=== PATIENT | female | born 1990 | race Two or more races ===

== ENCOUNTER 2018-05-28 17:56 | Observation (INO) | payer BC ==
[~2018-05-28] VITALS: Ht 160 cm; Wt 78.6 kg
[2018-05-28 18:30] LABS: MICROSCOPIC INDICATED
[2018-05-28] MEDS ORDERED: PREN1TAB60 PO (18:38)
[2018-05-28] MEDS ORDERED: LACTATED RINGERS 1,000 ML IV SCH (19:43)
[2018-05-28] MEDS ORDERED: LACTATED RINGERS 500 ML IVBOLUS ONE (20:00)
[2018-05-28] MEDS ORDERED: LACTATED RINGERS 1,000 ML IVBOLUS PRN (20:00)
[2018-05-28] MEDS ORDERED: NITROFURANTOIN (MACROBID) 100 MG CAPSULE ONE (20:40)
[2018-05-28] MEDS: NITROFURANTOIN (MACROBID) 100 MG CAPSULE PO SCH (20:42)
[2018-05-29] MEDS ORDERED: NITROFURANTOIN (MACROBID) 100 MG CAPSULE ONE (08:27)
[2018-05-29] MEDS: NITROFURANTOIN (MACROBID) 100 MG CAPSULE PO SCH (08:36)
[2018-05-29] MEDS ORDERED: LACTATED RINGERS 1,000 ML IV SCH (19:43)
== END 2018-05-29 09:15 | disposition home or self-care (01) ==
LOC: LDOP 17:56 → LDIP 20:00
PROVIDERS: ADMIT Obstetrics & Gynecology Maternal & Fetal Medicine; ATTEND Obstetrics & Gynecology Maternal & Fetal Medicine
DX: O62.9 Abnormality of forces of labor, unspecified (principal); O30.003 Twin pregnancy, unspecified number of placenta and unspecified number of amniotic sacs, third trimester; O40.3XX0 Polyhydramnios, third trimester, not applicable or unspecified; Z3A.31 31 weeks gestation of pregnancy
CPT/HCPCS: 59025; 81001; 87086; G0378; J7120; 96360; 96361

== ENCOUNTER 2018-06-16 18:40 | Outpatient (CLI) | payer BC ==
[~2018-06-16] VITALS: Ht 160 cm; Wt 83.2 kg
[~2018-06-16 18:40] MED LIST: PREN1TAB60 PO
[2018-06-16] MEDS ORDERED: BETAMETHASONE 6 MG/ML, 5ML IM ONE (19:33)
[2018-06-16 19:55] LABS: MICROSCOPIC INDICATED
[2018-06-16] MEDS ORDERED: BETAMETHASONE 6 MG/ML, 5ML IM SCH (20:00)
[2018-06-16] MEDS ORDERED: NITROFURANTOIN (MACROBID) 100 MG CAPSULE ONE (20:32)
[2018-06-16] MEDS ORDERED: NITROFURANTOIN (MACROBID) 100 MG CAPSULE PO SCH (21:00)
[2018-06-16 21:20] LABS: BASOPHILS # (AUTO) 0.01 x10^3/uL (0-0.1); BASOPHILS % (AUTO) 0 % (0-1); EOSINOPHILS # (AUTO) 0.15 x10^3/uL (0-0.4); EOSINOPHILS % (AUTO) 2 % (1-7); LYMPHOCYTES # (AUTO) 1.52 x10^3/uL (1-3.4); LYMPHOCYTES % (AUTO) 20 % (22-44); MD NO; MEAN CORPUSCULAR HEMOGLOBIN 24.7 pg (27.0-34.8); MEAN CORPUSCULAR HGB CONC 32.4 g/dL (32.4-35.8); MEAN CORPUSCULAR VOLUME 76.2 fL (80-100); MEAN PLATELET VOLUME 9.3 fL (7.4-10.4); MONOCYTES % (AUTO) 4 % (2-9); NEUTROPHILS % (AUTO) 74 % (42-75); PLATELET COUNT 216 x10^3/uL (130-400); RED BLOOD COUNT 3.91 x10^6/uL (3.82-5.3); RED CELL DISTRIBUTION WIDTH 16.5 % (9.6-15.2)
[2018-06-16 21:28] LABS: ALANINE AMINOTRANSFERASE 13 U/L (12-78); ALBUMIN 2.3 g/dL (3.4-5.0); ANION GAP 8 mmol/L (5-15); CALCIUM 8.2 mg/dL (8.5-10.1); CHLORIDE 112 mmol/L (98-107); CREATININE 0.57 mg/dL (0.55-1.02)
[2018-06-16 21:30] LABS: BILIRUBIN, DIRECT < 0.1 mg/dL (0.1-0.2)
[2018-06-16 21:31] LABS: ALKALINE PHOSPHATASE 170 U/L (45-117); BILIRUBIN,TOTAL 0.2 mg/dL (0.2-1.0); TOTAL PROTEIN 6.3 g/dL (6.4-8.2)
[2018-06-16] MEDS ORDERED: NITR100C56 PO (21:59)
== END 2018-06-16 22:23 | disposition home or self-care (01) ==
LOC: LDOP 18:40
PROVIDERS: ATTEND Obstetrics & Gynecology Maternal & Fetal Medicine
DX: O26.892 Other specified pregnancy related conditions, second trimester (principal); Z3A.34 34 weeks gestation of pregnancy
CPT/HCPCS: 36415; 59025; 80053; 81001; 82248; 84550; 85025; 87086; 96372; 99211; J0702; G0463

== ENCOUNTER 2018-06-30 18:34 | Outpatient (CLI) | payer BC ==
[~2018-06-30] VITALS: Ht 160 cm; Wt 85.0 kg
[~2018-06-30 18:34] MED LIST changes: +NITR100C56 PO
[2018-06-30 19:08] LABS: MICROSCOPIC INDICATED
[2018-06-30 19:18] LABS: BASOPHILS # (AUTO) 0.03 x10^3/uL (0-0.1); BASOPHILS % (AUTO) 0 % (0-1); EOSINOPHILS # (AUTO) 0.14 x10^3/uL (0-0.4); EOSINOPHILS % (AUTO) 2 % (1-7); LYMPHOCYTES # (AUTO) 2.06 x10^3/uL (1-3.4); LYMPHOCYTES % (AUTO) 26 % (22-44); MD NO; MEAN CORPUSCULAR HEMOGLOBIN 24.3 pg (27.0-34.8); MEAN CORPUSCULAR HGB CONC 32.6 g/dL (32.4-35.8); MEAN CORPUSCULAR VOLUME 74.7 fL (80-100); MEAN PLATELET VOLUME 9.4 fL (7.4-10.4); MONOCYTES # (AUTO) 0.44 x10^3/uL (0.2-0.8); MONOCYTES % (AUTO) 6 % (2-9); NEUTROPHILS # (AUTO) 5.28 x10^3/uL (1.8-6.8); NEUTROPHILS % (AUTO) 66 % (42-75); PLATELET COUNT 207 x10^3/uL (130-400); RED BLOOD COUNT 4.17 x10^6/uL (3.82-5.3); RED CELL DISTRIBUTION WIDTH 17.4 % (9.6-15.2)
[2018-06-30 19:29] LABS: ALANINE AMINOTRANSFERASE 19 U/L (12-78); ALBUMIN 2.4 g/dL (3.4-5.0); ANION GAP 10 mmol/L (5-15); CALCIUM 8.3 mg/dL (8.5-10.1); CHLORIDE 109 mmol/L (98-107); CREATININE 0.72 mg/dL (0.55-1.02)
[2018-06-30 19:31] LABS: ALKALINE PHOSPHATASE 220 U/L (45-117); BILIRUBIN,TOTAL 0.3 mg/dL (0.2-1.0); TOTAL PROTEIN 6.6 g/dL (6.4-8.2)
== END 2018-06-30 19:54 | disposition home or self-care (01) ==
LOC: LDOP 18:34
PROVIDERS: ATTEND Obstetrics & Gynecology Maternal & Fetal Medicine
DX: O10.913 Unspecified pre-existing hypertension complicating pregnancy, third trimester (principal); Z3A.36 36 weeks gestation of pregnancy
CPT/HCPCS: 36415; 59025; 80053; 81001; 82570; 84156; 84550; 85025; 87086; 99211; G0463

== ENCOUNTER 2018-07-02 07:38 | Inpatient (IN) | payer BC ==
[~2018-07-02] VITALS: Ht 160 cm; Wt 84.0 kg
[2018-07-02] MEDS ORDERED: OXYTOCIN 30U/ 0.9% NaCL 500ML 500 ML IV PRN (09:18)
[2018-07-02] MEDS: D5%-LACTATED RINGERS 1,000 ML IV SCH ×2 (09:18→17:18)
[2018-07-02] MEDS ORDERED: OXYTOCIN 30U/ 0.9% NaCL 500ML 500 ML IV ONE (09:18)
[2018-07-02] MEDS ORDERED: ONDANSETRON 2MG/ML, 2ML IVPush PRN ×2 (09:30→15:00)
[2018-07-02] MEDS ORDERED: SODIUM CITRATE/CITRIC ACID 15 ML UDC PO PRN (09:30)
[2018-07-02] MEDS ORDERED: CALCIUM CARBONATE 500 MG TAB.CHEW PO PRN (09:30)
[2018-07-02] MEDS ORDERED: FENTANYL PF 100 MCG/2ML IVPush PRN (09:30)
[2018-07-02 09:57] LABS: MEAN CORPUSCULAR HEMOGLOBIN 23.4 pg (27.0-34.8); MEAN CORPUSCULAR HGB CONC 31.5 g/dL (32.4-35.8); MEAN CORPUSCULAR VOLUME 74.2 fL (80-100); MEAN PLATELET VOLUME 9.8 fL (7.4-10.4); PLATELET COUNT 204 x10^3/uL (130-400); RED BLOOD COUNT 4.35 x10^6/uL (3.82-5.3); RED CELL DISTRIBUTION WIDTH 17.8 % (9.6-15.2)
[2018-07-02 10:14] LABS: MD YES
[2018-07-02 10:16] LABS: ANISOCYTOSIS 1+; HYPOCHROMIA 1+; LYMPHS% (MANUAL) 35 % (22-44); MICROCYTOSIS 1+; MONOS#(MANUAL) 0.48 x10^3/uL (0.3-2.7); MONOS% (MANUAL) 8 % (2-9); SEG#(MANUAL) 3.42 x10^3/uL (1.8-6.8); SEGS% (MANUAL) 57 % (42-75)
[2018-07-02 10:17] LABS: <PLATELET ESTIMATE> ADEQUATE; <PLT MORPHOLOGY> NORMAL PLT MORPH; POLYCHROMASIA 1+
[2018-07-02] MEDS ORDERED: FENTANYL PF 500 MCG, BUPIVACAINE/PF 0.5%, 30ML 62.5 ML in SODIUM CHLORIDE 0.9% 177.5 ML EPIDCONT SCH ×2 (10:26→15:00)
[2018-07-02 10:29] VITALS: BP 138/76
[2018-07-02] MEDS ORDERED: NEWBORN KIT ONE ×2 (10:51→10:52)
[2018-07-02] MEDS ORDERED: LIDOCAINE 1%, 20ML ONE (10:52)
[2018-07-02] MEDS ORDERED: MISOPROSTOL 200 MCG TABLET ONE (10:52)
[2018-07-02] MEDS ORDERED: OXYTOCIN 30U/ 0.9% NaCL 500ML 500 ML ONE (10:52)
[2018-07-02] MEDS: PLEASE ENTER HEIGHT AND WEIGHT MC SCH ×2 (11:00→19:00)
[2018-07-02] MEDS: LACTATED RINGERS 1,000 ML IVBOLUS PRN ×2 (13:34→14:25)
[2018-07-02] MEDS ORDERED: BUPIVACAINE 0.25% ONE (14:18)
[2018-07-02] MEDS: LACTATED RINGERS 1,000 ML IV SCH ×4 (14:46→22:53)
[2018-07-02] MEDS ORDERED: FENTANYL/BUPIV./NS/PF 250 ML EPIDCONT SCH (14:53)
[2018-07-02] MEDS ORDERED: NALOXONE 0.4 MG/ML, 1ML IVPush PRN (15:00)
[2018-07-02] MEDS ORDERED: DIPHENHYDRAMINE 50 MG/ML, 1ML IVPush PRN (15:00)
[2018-07-02] MEDS ORDERED: LACTATED RINGERS 1,000 ML IVBOLUS PRN (15:00)
[2018-07-02] MEDS ORDERED: EPHEDRINE 50 MG/ML, 1ML IVPush PRN (15:00)
[2018-07-02 19:30] VITALS: BP 106/70
[2018-07-02] MEDS ORDERED: ONDANSETRON 2MG/ML, 2ML ONE (22:33)
[2018-07-02] MEDS ORDERED: SODIUM CITRATE/CITRIC ACID 15 ML UDC ONE (22:48)
[2018-07-02] MEDS ORDERED: METOCLOPRAMIDE 5 MG/ML, 2ML ONE (22:48)
[2018-07-02] MEDS ORDERED: LIDOCAINE/MPF 2%-EPI 1:200K, 20 ML ONE (23:07)
[2018-07-03] MEDS ORDERED: OXYTOCIN 30U/ 0.9% NaCL 500ML 500 ML ONE (00:33)
[2018-07-03] MEDS: OXYTOCIN 30U/ 0.9% NaCL 500ML 500 ML IV SCH ×2 (00:40→10:40)
[2018-07-03] MEDS ORDERED: IBUPROFEN 600 MG TABLET ONE (00:46)
[2018-07-03] MEDS: IBUPROFEN 600 MG TABLET PO PRN ×3 (00:49→16:14)
[2018-07-03] MEDS ORDERED: METHYLERGONOVINE 0.2 MG/ML IM PRN (01:00)
[2018-07-03] MEDS ORDERED: CARBOPROST TROMETHAMINE 250 MCG/ML, 1ML IM PRN (01:00)
[2018-07-03] MEDS ORDERED: ONDANSETRON 2MG/ML, 2ML IV PRN (01:00)
[2018-07-03] MEDS ORDERED: MISOPROSTOL 200 MCG TABLET SL PRN (01:00)
[2018-07-03] MEDS ORDERED: OXYcodone IR 5MG TABLET PO PRN (01:00)
[2018-07-03] MEDS ORDERED: OXYcodone/APAP 5/325MG TABLET PO PRN (01:00)
[2018-07-03] MEDS ORDERED: ACETAMINOPHEN 325 MG TABLET PO PRN (01:00)
[2018-07-03] MEDS: D5%-LACTATED RINGERS 1,000 ML IV SCH (01:18)
[2018-07-03 02:40] VITALS: BP 109/66
[2018-07-03 05:15] VITALS: BP 114/69
[2018-07-03] MEDS: LACTATED RINGERS 1,000 ML IV SCH ×2 (06:53→14:53)
[2018-07-03 07:50] VITALS: BP 120/77
[2018-07-03] MEDS: DOCUSATE 100 MG CAPSULE PO PRN (07:57)
[2018-07-03] MEDS: PRENATAL VIT/IRON/FA 1 EACH TABLET PO SCH (07:57)
[2018-07-03 08:12] LABS: MEAN CORPUSCULAR HEMOGLOBIN 23.4 pg (27.0-34.8); MEAN CORPUSCULAR HGB CONC 31.3 g/dL (32.4-35.8); MEAN CORPUSCULAR VOLUME 74.6 fL (80-100); MEAN PLATELET VOLUME 9.2 fL (7.4-10.4); PLATELET COUNT 158 x10^3/uL (130-400); RED BLOOD COUNT 4.25 x10^6/uL (3.82-5.3); RED CELL DISTRIBUTION WIDTH 18.1 % (9.6-15.2)
[2018-07-03 08:28] LABS: BASOPHILS # (AUTO) 0.03 x10^3/uL (0-0.1); BASOPHILS % (AUTO) 0 % (0-1); EOSINOPHILS # (AUTO) 0.02 x10^3/uL (0-0.4); EOSINOPHILS % (AUTO) 0 % (1-7); LYMPHOCYTES # (AUTO) 1.78 x10^3/uL (1-3.4); LYMPHOCYTES % (AUTO) 17 % (22-44); MD SCAN; MONOCYTES # (AUTO) 0.48 x10^3/uL (0.2-0.8); MONOCYTES % (AUTO) 5 % (2-9); NEUTROPHILS # (AUTO) 8.08 x10^3/uL (1.8-6.8); NEUTROPHILS % (AUTO) 78 % (42-75)
[2018-07-03 11:51] VITALS: BP 116/72
[2018-07-03 16:27] VITALS: BP 110/72
[2018-07-03 19:45] VITALS: BP 104/62
[2018-07-04] VITALS: BP 112/69
[2018-07-04] MEDS: IBUPROFEN 600 MG TABLET PO PRN ×2 (03:00→08:22)
[2018-07-04 07:30] VITALS: BP 106/68
[2018-07-04] MEDS: DOCUSATE 100 MG CAPSULE PO PRN (08:22)
[2018-07-04] MEDS: PRENATAL VIT/IRON/FA 1 EACH TABLET PO SCH (08:22)
[2018-07-04] MEDS ORDERED: DOCU-131 PO (13:29)
[2018-07-04] MEDS ORDERED: IBUP-1222 PO (13:30)
== END 2018-07-04 14:56 | disposition home or self-care (01) | DRG 807 ==
LOC: LDIP 09:16 → 2NW 07-03 02:06
PROVIDERS: ADMIT Obstetrics & Gynecology Maternal & Fetal Medicine; ATTEND Obstetrics & Gynecology Maternal & Fetal Medicine
PROC: 10E0XZZ Delivery of Products of Conception, External Approach (ICD-10-PCS; principal; 2018-07-03)
PROC: 3E0R3BZ Introduction of Anesthetic Agent into Spinal Canal, Percutaneous Approach (ICD-10-PCS; 2018-07-03)
PROC: 00HU33Z Insertion of Infusion Device into Spinal Canal, Percutaneous Approach (ICD-10-PCS; 2018-07-03)
DX: O30.033 Twin pregnancy, monochorionic/diamniotic, third trimester (principal); Z37.2 Twins, both liveborn; Z3A.36 36 weeks gestation of pregnancy; O69.81X2 Labor and delivery complicated by cord around neck, without compression, fetus 2
CPT/HCPCS: 36415; 82803; 85025; 86850; 86900; 88305; G0378; J2405; J3490; J2590; J3010; J7120